=== PATIENT | male | born 1980 | race Caucasian/White ===

== ENCOUNTER 2020-04-13 15:34 | Outpatient (CLI) | payer OTHER ==
--- NOTE | 2020-04-13 15:17 | SLEEP CARE CONSULTATION ---
Information from patient questionnaire entered by Nori Burgess. I have reviewed and concur with the information entered by Nori Burgess. This document represents the service I personally performed and the decisions made by me, Brendan Barone MD, [facility]. History of Present Illness Service Date and Time: 04/13/2020 1440 Reason for Visit: New patient Chief Complaint: reports: Unrefreshed sleep, Snoring, Observed pauses in breathing, Fatigue, Frequent awakenings at night Duration of Symptoms: 3 years Usual bedtime: 9:30 pm Time it takes to fall asleep: 15-20 mins Snores at night: Yes Observed to quit breathing while asleep: Yes Sleeps alone due to snoring: Yes Number of times waking at night: 3-4 Reasons for waking at night: reports: Choking, Snoring, Pain Toss, Turn, or Twitch while sleeping: Yes Recalls having dreams: No Usually gets out of bed at: 6:30 am Feels refreshed in the morning: No Morning headache: No Sleepy or fatigued during the day: Yes (sometimes) Ever fallen asleep while driving: No Takes day naps: No Dreams during day naps: No Prior sleep studies: No Additional HPI information: I had the pleasure of seeing Mr. Kim today regarding the possibility of him having a sleep disorder. As you know, he is a 39 year old gentleman who complains of loud snore, observed apneas, and frequent awakenings for at least 3 years. The patient tells me that he normally goes to bed around 9:30 pm, and it takes him approximately 15 - 20 minutes to fall asleep. He has been told that he snores loudly and irregularly at night. He has also been observed to stop breathing in his sleep. His occasionally has to sleep in a separate room. He can recall waking up on the average of 3 - 4 times during the night. Most of the time he wakes up because of pain and because of his own snoring, choking, and having to gasp for air. There is a lot of tossing and turning in his sleep. No somniloquy (sleep talking) or somnambulism (sleep walking). Generally there is no recollection of dreams. In the morning he usually gets up out of the bed around 6:30 a.m. not feeling refreshed nor rested. He usually does not have a morning headache. During the day he complains of feeling occasionally sleepy and fatigued. His score on [place] Sleepiness Scale is 6 out of 24. He has never fallen asleep while driving nor has had any accident due to sleepiness. He usually does not take naps during the day. Upon falling asleep during the day he denies having vivid dreams. He has never had sleep paralysis, experienced cataplexy or symptoms of restless leg syndrome. He denies having impaired concentration during the day. - Parasomnia Symptoms Ever been unable to move upon waking from sleep: No Ever acted out dreams in sleep: No Ever felt weak in the knees when startled or emotional: No Bothered by creepy, crawly, restless sensations in legs: No Problems with memory or concentration: Yes (sometimes) Subjective Initial [place] Sleepiness Scale score: 6 Past Medical History Past Medical History: reports: Arthritis (knee surgery, shoulder surgery), Hypothyroidism, Other (Sterile) Social History The patient's occupation is a Active . Patient is and lives in [place]. Have you smoked in the past 12 months: No Alcohol use: Yes Alcohol amount and frequency: 2 drinks on weekends only Caffeine use: Yes Caffeine amount and frequency: 2 cups of coffee daily Family History Family history of sleep disordered breathing: Yes Family Hx Sleep Apnea: Father: Snoring (dad had nose surgery and uncle snoring), Other: Snoring Allergies and Home Medications Drug allergies reviewed: Yes (NKDA) Home medication list reviewed: Yes (Synthroid and ibuprofen) Review of Systems Respiratory: reports: wheeze Gastrointestinal: reports: heartburn (occassionally, depending on food) Ear/Nose/Throat: reports: nasal congestion, sinus problems, wisdom teeth removed Endocrine: reports: thyroid disease Musculoskeletal: reports: joint pain, neck pain, back pain, joint swelling, muscle pain or cramping, mobility problems Immunologic: reports: sneezing, allergies to food or environment (environment - allergies) Physical Exam Height: 6 ft 1 in Weight: 215 lb Body Mass Index: 28.3 BMI Classification: Overweight Impression and Plan IMPRESSION: 1. Obstructive Sleep Apnea-Hypopnea Syndrome, as suggested by history of loud and irregular snoring, observed cessation of breath while asleep, frequent awakenings during the night, unrefreshed sleep, nocturnal choking, cognitive impairment, and daytime hypersomnolence. Narrow oropharynx and obesity are common predisposing factors for obstructive sleep apnea-hypopnea syndrome. Pathophysiology of sleep-disordered breathing was discussed. I recommend proceeding to polysomnography to confirm the diagnosis and to assess severity. If he has significant sleep disordered breathing, a manual CPAP titration study will also be performed to find the optimal treatment pressure. I informed the patient of what the sleep studies involve and after some discussion, he agreed to proceed. Plan: 1. Schedule polysomnography + manual CPAP titration study 2. Avoid long distance driving or when feeling sleepy. 3. Avoid alcohol, sedative and muscle relaxant around bedtime. 4. Attempt to lose some weight. 5. Return in 1 to 2 weeks after the study to discuss results and initiate therapy. Visit Type: Telehealth Video Video Type: Talent Flush Patient Location: Home Location of Provider: Home Patient agrees and consents to this telehealth visit type: Yes Patient agrees to have their insurance billed: Yes Time Spent with Patient (minutes): 15 Provider Statement: I spent 100% of the Telehealth Video Call with the patient with greater than 50% spent counseling the patient and coordination of care.
== END 2020-04-13 15:35 | disposition home or self-care (01) ==
LOC: SC 15:34
PROVIDERS: ATTEND Internal Medicine Pulmonary Disease
DX: R06.83 Snoring (principal); G47.8 Other sleep disorders; R06.81 Apnea, not elsewhere classified; G47.10 Hypersomnia, unspecified; E66.3 Overweight; Z68.28 Body mass index [BMI] 28.0-28.9, adult

== ENCOUNTER 2020-05-15 10:07 | Day surgery (SDC) | payer OTHER ==
[2020-05-15] MEDS ORDERED: CEFAZOLIN SODIUM IN 0.9 % NACL 2 GM/100 ML BAG IV ONE (10:21)
[2020-05-15] MEDS ORDERED: LACTATED RINGERS 1,000 ML IV ONE ×3 (10:33→17:21)
--- NOTE | 2020-05-15 11:46 | ANESTHESIA ---
Pre-Anesthesia VS, & Labs - Diagnosis left ACL graft failure - Procedure left revision of ACL reconstruction Vital Signs: Temp Pulse Resp BP Pulse Ox 36.9 C 71 17 119/75 98 05/15/20 10:20 05/15/20 10:20 05/15/20 10:20 05/15/20 10:20 05/15/20 10:20 Height 6 ft Weight (kg) 95.25 kg Body Mass Index 28.3 - NPO >8 hours Home Medications and Allergies Home Medications: Ambulatory Orders Ibuprofen [Motrin] 800 mg PO Q8H PRN 05/06/20 Levothyroxine [Synthroid] 88 mcg PO QDAC 05/06/20 Ibuprofen [Motrin] 800 mg PO Q8H PRN 05/06/20 Levothyroxine [Synthroid] 88 mcg PO QDAC 05/06/20 Allergies/Adverse Reactions: Allergies Allergy/AdvReac Type Severity Reaction Status Date / Time No Known Drug Allergies Allergy Verified 05/06/20 15:07 Anes History & Medical History - Anesthetic History Anesthesia Complications: reports: No previous complications - Medical History Cardiovascular: reports: None Pulmonary: reports: None Gastrointestinal: reports: None Urinary: reports: None Musculoskeletal: reports: Other Endocrine/Autoimmune: reports: HyPOthyroidism Skin: reports: None - Surgical History General: Appendectomy Orthopedic: ACL reconstruction, Shoulder arthroplasty Exam General: Alert Dental: WNL Mouth Opening: Greater than 4 Fingerbreadths Neck Mobility: Normal Mallampati classification: I Thyromental Distance: greater than 6 cm Respiratory: Lungs clear Cardiovascular: Regular rate Plan Anesthesia Type: General, Adductor Block Consent for Procedure(s) Verified and Reviewed: Yes Code Status: Attempt Resuscitation ASA classification: 2-Mild systemic disease Is this case an emergency?: No
[2020-05-15] MEDS ORDERED: fentaNYL 100 MCG/2 ML VIAL IVP ONE (12:15)
[2020-05-15] MEDS ORDERED: PROPOFOL 200 MG/20 ML VIAL IVP ONE (12:15)
[2020-05-15] MEDS ORDERED: ONDANSETRON 4 MG/2 ML VIAL IVP ONE (12:15)
[2020-05-15] MEDS ORDERED: MIDAZOLAM 2 MG/2 ML VIAL IVP ONE (12:15)
[2020-05-15] MEDS ORDERED: BUPIVACAINE 0.25% PF 30 ML VIAL ONE (12:27)
[2020-05-15] MEDS ORDERED: SODIUM CHLORIDE 0.9% 10 ML ONE (12:27)
[2020-05-15] MEDS ORDERED: EPINEPHrine 1 MG/ML AMP ONE (12:27)
[2020-05-15] MEDS ORDERED: BACITRACIN 50,000 UNIT VIAL ONE (12:27)
[2020-05-15] MEDS ORDERED: WATER FOR INJECTION,STERILE 10 ML ONE (12:28)
[2020-05-15] MEDS ORDERED: BUPIVACAINE 0.25% PF 30 ML VIAL SUBQ ONE ×2 (13:36)
[2020-05-15] MEDS ORDERED: EPINEPHrine 1 MG/ML AMP IVP ONE (13:36)
[2020-05-15] MEDS ORDERED: BACITRACIN 50,000 UNIT VIAL TOP ONE (14:06)
[2020-05-15] MEDS ORDERED: KETOROLAC 30 MG/ML VIAL ONE (16:28)
[2020-05-15] MEDS ORDERED: ONDANSETRON 4 MG/2 ML VIAL IVP PRN (16:44)
[2020-05-15] MEDS ORDERED: oxyCODONE 5 MG TABLET PO PRN (16:44)
[2020-05-15] MEDS: fentaNYL 100 MCG/2 ML VIAL ONE ×3 (17:05→17:13)
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
[2020-05-15] MEDS ORDERED: oxyCODONE 5 MG TABLET ONE (17:10)
[2020-05-15 17:50] VITALS: BP 110/77
== END 2020-05-15 10:08 | disposition home or self-care (01) ==
LOC: SDS 10:07
PROVIDERS: ATTEND Orthopaedic Surgery
DX: T84.89XA Other specified complication of internal orthopedic prosthetic devices, implants and grafts, initial encounter (principal); S83.512A Sprain of anterior cruciate ligament of left knee, initial encounter; M17.12 Unilateral primary osteoarthritis, left knee
CPT/HCPCS: 29888; A9270; J0690; J7120; 87070; 87205

== ENCOUNTER 2020-07-28 08:53 | Outpatient (CLI) | payer OTHER ==
--- NOTE | 2020-07-28 09:34 | SLEEP CARE CONSULTATION ---
Information from patient questionnaire entered by Nori Burgess. I have reviewed and concur with the information entered by Nori Burgess. This document represents the service I personally performed and the decisions made by me, Brendan Barone MD, [facility]. History of Present Illness Service Date and Time: 07/28/2020 0853 Initial [place] Sleepiness Scale score: 6 (in 2019) Additional HPI information: HPI: Mr. Kim returns for a follow up of the sleep study he had on 06/23/2020. The polysomnography showed that The patient had normal sleep efficiency. Despite moderate sleep fragmentation, the sleep architecture was normal as well. Respiratory monitoring showed mild obstructive sleep apnea-hypopnea (AHI = 13.6) associated with frequent arousals, oxyhemoglobin desaturation and mild hypoxia (hayden oxygen saturation of 83%). The respiratory events occurred almost exclusively during supine sleep (supine AHI = 50.1; non-supine = 1.66). Snore was loud in intensity. There was no significant periodic leg movement of sleep. Cardiac rhythm was normal sinus rhythm without significant arrhythmia. No abnormal behavior (parasomnia) observed during the night. The patient was informed of these findings. I explained to him the pathophysiology behind obstructive sleep apnea. We then spent quite a bit of time discussing different treatment options. For mild obstructive sleep apnea, surgery and oral appliance are alternatives to nasal CPAP therapy but in moderate or severe cases, nasal CPAP is the most effective and reliable treatment. Weight loss in an obese individual is strongly recommended. After some discussion, he opted to go with the nasal CPAP therapy. I explained to him how CPAP machine works and what to expect when using the machine. Sleep Study - Results Type of Sleep Study: Polysomnography Prior sleep studies: No Physical Exam Height: 6 ft Weight: 215 lb Body Mass Index: 29.1 BMI Classification: Overweight Impression and Plan IMPRESSION: 1. Obstructive Sleep Apnea-Hypopnea Syndrome, mild, associated with mild hypoxemia and sleep fragmentation. Possibly, this is the cause of the patients symptoms of unrefreshed sleep, and excessive daytime sleepiness. As mentioned above, the patient will be return for a manual CPAP/BiPAP titration study. PLAN: 1. Schedule a manual CPAP/BiPAP titration study. 2. Avoid alcohol consumption near bedtime. 3. Avoid sleeping supine when not using CPAP. 4. Return for a follow up after the titration study. I will order the CPAP for him at that time. Visit Type: In Office Time Spent with Patient (minutes): 15 Provider Statement: I spent 100% of the Face to Face Visit with the patient with greater than 50% spent counseling the patient and coordination of care.
== END 2020-07-28 08:54 | disposition home or self-care (01) ==
LOC: SC 08:53
PROVIDERS: ATTEND Internal Medicine Pulmonary Disease
DX: G47.33 Obstructive sleep apnea (adult) (pediatric) (principal); E66.3 Overweight; Z68.29 Body mass index [BMI] 29.0-29.9, adult
CPT/HCPCS: 99212; 99213

== ENCOUNTER 2020-08-05 20:35 | Outpatient (CLI) | payer OTHER | END 2020-08-05 20:36 | disposition home or self-care (01) | LOC: SC 20:35 | PROVIDERS: ATTEND Internal Medicine Pulmonary Disease | DX: G47.33 Obstructive sleep apnea (adult) (pediatric) (principal) | CPT/HCPCS: 95811 ==

== ENCOUNTER 2020-08-07 16:09 | Outpatient (CLI) | payer OTHER ==
--- NOTE | 2020-08-07 16:30 | SLEEP CARE CONSULTATION ---
Information from patient questionnaire entered by Itzel Howe. I have reviewed and concur with the information entered by Itzel Howe. This document represents the service I personally performed and the decisions made by , Sara Denton ARNP. History of Present Illness Service Date and Time: 08/07/2020 1609 Initial [place] Sleepiness Scale score: 6 (in 2019) Current [place] Sleepiness Scale score: 11 Additional HPI information: LAKESHAANANYA TIPTON retruns for follow up of the sleep study with a manual CPAP titration study performed on 08-05-20. The patient was informed of the following polysomnography findings: Obstructive sleep apnea-hypopnea (ICD-10 G47.33), mild (AHI was 13.6), adequately controlled with CPAP at 5 cmH2O. Sleep Study - Results Type of Sleep Study: Polysomnography Prior sleep studies: No Polysomnography/Home Sleep Study results: IMPRESSION: The quality of the study is good. CPAP was initiated at 4 cmH2O and titrated up to CPAP at 6 cmH2O. CPAP at 5 cmH2O appeared to be optimal (AHI of 0.5 per hour on the pressure). There was supine REM sleep on the pressure. Oxygen saturation was normal throughout the night. Lower CPAP settings appeared adequate as well. The patient appeared to have tolerated positive airway pressure therapy very well. The patients sleep efficiency was normal. The sleep architecture was also normal. There was no significant periodic leg movement of sleep. Cardiac rhythm was normal sinus rhythm without significant arrhythmia. No abnormal behavior (parasomnia) observed during the night. Allergies and Home Medications Drug allergies reviewed: Yes (NKDA) Home medication list reviewed: Yes (no changes) Review of Systems Review of systems same as previous: Yes (no changes) Physical Exam Heart Rate: 75 O2 Saturation: 98 Height: 6 ft Weight: 214 lb Body Mass Index: 29.0 BMI Classification: Overweight Impression and Plan 1. Obstructive Sleep Apnea-Hypopnea Syndrome, 13.6, with lowest oxygen saturation of 83%. Obviously this is a possible cause of the patients symptoms of unrefreshed sleep, and excessive daytime sleepiness. Positive pressure therapy could benefit his overall health. As mentioned above, the patient will be started on nasal autoCPAP therapy with pressure set at 4-8 cmH2O. Compliance guidelines also reviewed. A copy of compliance guidelines will be given for reference at check out. Because the apnea is more severe supine, I instructed to avoid sleeping supine using pillow positioning until able to start CPAP use. * Nasal auto CPAP therapy, pressure at 4-8 cm H2O. * Attempt to lose weight. * Avoid alcohol consumption near bedtime. * Avoid supine sleep until using CPAP. * The patient is again cautioned about driving until sleepiness completely resolves. * Return one month after CPAP obtained. I will assess response to therapy and compliance at that time. Visit Type: In Office Time Spent with Patient (minutes): 15 Provider Statement: I spent 100% of the Face to Face Visit with the patient with greater than 50% spent counseling the patient and coordination of care.
== END 2020-08-07 16:10 | disposition home or self-care (01) ==
LOC: SC 16:09
PROVIDERS: ATTEND Nurse Practitioner Family
DX: G47.33 Obstructive sleep apnea (adult) (pediatric) (principal); E66.3 Overweight; Z68.29 Body mass index [BMI] 29.0-29.9, adult
CPT/HCPCS: 99212; 99213

== ENCOUNTER 2020-09-29 13:09 | Outpatient (CLI) | payer OTHER ==
--- NOTE | 2020-09-29 13:53 | SLEEP CARE CONSULTATION ---
Information from patient questionnaire entered by Nori Burgess. I have reviewed and concur with the information entered by Nori Burgess. This document represents the service I personally performed and the decisions made by me, Brendan Barone MD, [facility]. History of Present Illness Service Date and Time: 09/29/2020 1309 Previous diagnosis: Mild, Obstructive Sleep Apnea-Hypopnea Syndrome AHI: 13.6 (in 2019) Reason for follow up: first compliance Equipment type: CPAP Equipment obtained from: Other ([facility]) Mask style: Nasal pillows Prior sleep studies: Yes Year and Where: 2019 - [facility] Type of Sleep Study: Polysomnography HPI additional information: HPI: Mr. Kim was returns to follow up on the nasal CPAP therapy. He was diagnosed to have mild obstructive sleep apnea-hypopnea syndrome. The patient wears a [employer] DreamWear nasal cushion mask. He reports using the device nightly and all through the night. The compliance report shows usage in 30 nights out of the past 30 nights, averaging 6.3 hours a night. The > 4 hour compliance rate for the past 30 days is 90%. He complained of no particular problem with the device such as soreness on the face, dry nose, epistaxis, nasal congestion or headache. He thinks that the pressure is comfortable. On the CPAP therapy he notices improvement in his sleep quality, and that he wakes up feeling fresher in the morning and more awake/alert during the day. [place] Sleepiness Scale score is 2. His notices no snore at all. The average residual AHI is 1.9; and average air leak is 0.3 L/minute. The 90th percentile pressure is 4.9 cmH2O. CPAP Compliance Data - Data Reviewed with Patient Average duration of nightly device use: 6.25 Compliance rate %: 90 Current pressure setting (cmH2O): 4-8 Humidity settin Average residual AHI: 1.9 Subjective Patient concerns: reports: nasal congestion (could be allergies) Current pressure setting perceived as: comfortable Initial [place] Sleepiness Scale score: 6 (in 2019) Current [place] Sleepiness Scale score: 2 Allergies and Home Medications Drug allergies reviewed: Yes Home medication list reviewed: Yes Physical Exam Vital signs obtained and entered by: To minimize the risk of COVID-19 exposure, detailed exam was not performed. Height: 6 ft Weight: 215 lb Body Mass Index: 29.1 BMI Classification: Overweight Impression and Plan IMPRESSION: 1. Obstructive Sleep Apnea-Hypopnea Syndrome, mild (AHI was 13.6), with the patient doing well on nasal CPAP therapy. He has excellent compliance and significant clinical improvement. The current pressure appears effective and comfortable. His mask fits well. Overall, he is very satisfied with treatment and plans to continue with it long-term. No adjustment is necessary today. 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 PLAN: 1. Continue with autoCPAP set at 4 - 8 cmH2O. 2. Schedule a maintenance of wakefulness test (MWT) 3. Return for a follow up after the day study. Visit Type: In Office Time Spent with Patient (minutes): 15 Provider Statement: I spent 100% of the Face to Face Visit with the patient with greater than 50% spent counseling the patient and coordination of care.
== END 2020-09-29 13:10 | disposition home or self-care (01) ==
LOC: SC 13:09
PROVIDERS: ATTEND Internal Medicine Pulmonary Disease
DX: G47.33 Obstructive sleep apnea (adult) (pediatric) (principal); E66.3 Overweight; Z68.29 Body mass index [BMI] 29.0-29.9, adult
CPT/HCPCS: 99212; 99213

== ENCOUNTER 2020-11-11 06:53 | Outpatient (CLI) | payer OTHER | END 2020-11-11 06:54 | disposition home or self-care (01) | LOC: SC 06:53 | PROVIDERS: ATTEND Internal Medicine Pulmonary Disease | DX: G47.33 Obstructive sleep apnea (adult) (pediatric) (principal) | CPT/HCPCS: 95805 ==

== ENCOUNTER 2020-11-11 08:00 | Outpatient (CLI) | payer OTHER ==
[2020-11-11 12:49] LABS: MUDS CUTOFF CONCENTRATIONS CUTOFF CONC BELOW:
[2020-11-11 13:12] LABS: AMPHETAMINE SCREEN,URINE NEGATIVE (NEGATIVE); BENZODIAZEPINES SCREEN, URINE NEGATIVE (NEGATIVE); COCAINE SCREEN URINE NEGATIVE (NEGATIVE); METHADONE SCREEN, URINE NEGATIVE (NEGATIVE); METHAMPHETAMINES SCREEN, URINE NEGATIVE (NEGATIVE); OPIATE SCREEN, URINE NEGATIVE (NEGATIVE); OXYCODONE SCREEN, URINE NEGATIVE (NEGATIVE); PROPOXYPHENE SCREEN, URINE NEGATIVE (NEGATIVE); TRICYCLIC ANTIDEPRESSANT,URINE NEGATIVE (NEGATIVE)
== END 2020-11-11 23:59 | disposition home or self-care (01) ==
LOC: LAB.R 08:00
PROVIDERS: ATTEND Internal Medicine Pulmonary Disease
DX: R41.82 Altered mental status, unspecified (principal)
CPT/HCPCS: 80306

== ENCOUNTER 2020-11-17 14:13 | Outpatient (CLI) | payer OTHER ==
--- NOTE | 2020-11-17 23:24 | SLEEP CARE CONSULTATION ---
Information from patient questionnaire entered by Nori Burgess. I have reviewed and concur with the information entered by Nori Burgess. This document represents the service I personally performed and the decisions made by me, Brendan Barone MD, [facility]. History of Present Illness Service Date and Time: 11/17/2020 1413 Initial [place] Sleepiness Scale score: 6 (in 2019) Additional HPI information: HPI: Mr. Kim was returns to follow up on the nasal CPAP therapy. He was diagnosed to have mild obstructive sleep apnea-hypopnea syndrome. The patient continues to use his CPAP every night and all night. The compliance data show usage in 30 out of the past 30 nights, averaging 7.1 hours a night. The residual AHI is 1.1 and average air leak is 0.8 L/minute. He recently had a maintenance of wakefulness test (MWT) which was normal. Sleep Study - Results Type of Sleep Study: Polysomnography (MWT) Prior sleep studies: Yes Year and Where: 2019 - [facility] Allergies and Home Medications Drug allergies reviewed: Yes Home medication list reviewed: Yes Review of Systems Review of systems same as previous: Yes Physical Exam Vital signs obtained and entered by: To minimize the risk of COVID-19 exposure, detailed exam was not performed. Height: 6 ft Weight: 215 lb Body Mass Index: 29.1 BMI Classification: Overweight Impression and Plan IMPRESSION: 1. Obstructive Sleep Apnea-Hypopnea Syndrome, mild (AHI was 13.6), with the patient doing well on nasal CPAP therapy. He has excellent compliance and significant clinical improvement. The current pressure appears effective but he feels that it is too low at the beginning of the night. His mask fits well. No residual excessive daytime sleepiness. Overall, he is very satisfied with treatment and plans to continue with it long-term. No adjustment is necessary today. I will adjust the pressure for his comfort. PLAN: 1. AutoCPAP set to 6 - 8 cmH2O via the modem. 2. Return for a follow up in a year or earlier if there is any problem. 3. 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 Visit Type: In Office Time Spent with Patient (minutes): 15 Provider Statement: I spent 100% of the Face to Face Visit with the patient with greater than 50% spent counseling the patient and coordination of care.
== END 2020-11-17 14:14 | disposition home or self-care (01) ==
LOC: SC 14:13
PROVIDERS: ATTEND Internal Medicine Pulmonary Disease
DX: G47.33 Obstructive sleep apnea (adult) (pediatric) (principal); E66.3 Overweight; Z68.29 Body mass index [BMI] 29.0-29.9, adult
CPT/HCPCS: 99212; 99213